=== PATIENT | female | born 1930 | race Caucasian/White ===

== ENCOUNTER 2017-02-27 20:36 | Emergency (ER) | payer MEDICARE, BC ==
[2017-02-27] MEDS ORDERED: FENTANYL 100 MCG/2 ML VIAL ONE (21:05)
--- NOTE | 2017-02-27 22:18 | ER NURSING DOCUMENTATION ---
Nurse's Notes [facility] Name:Zina Camargo Age:86 yrs Sex:Female :1930 Arrival Date:02/27/2017 Time:20:36 Bed6 Private MD:Jazlyn Salmeron Diagnosis:Colles Fracture Presentation: 02/27 20:39 Acuity: YE 3 lc 20:40 Presenting complaint: Patient states: GROUND LEVEL FALL AND INJURED LEFT WRIST. NO LOC lc OR NECK PAIN. DENIES OTHER INJURY. TOOK TYLENOL BEFORE COMING. Transition of care: [facility]. Notified ED Physician of patient's arrival and CC. 20:40 Method Of Arrival: Private Vehicle lc Triage Assessment: 20:45 General: Appears uncomfortable, well groomed, Behavior is appropriate for age, lc cooperative. Pain: Complains of pain in left wrist Pain At worst was 9 out of 10 on a pain scale. Quality of pain is described as throbbing, Pain began 1 hour ago Aggravated by increased activity. Neuro: Level of Consciousness is awake, alert, Oriented to person, place, time, event. Musculoskeletal: Circulation, motion, and sensation intact Capillary refill Range of motion limited in left wrist Swelling present in left wrist. Injury Description: Crush injury. Historical: - Allergies: Codeine; - Home Meds: 1. Lisinopril Oral 2. Aricept Oral 3. Xanax Oral 4. Lexapro Oral 5. atorvastatin oral - PMHx: Hypertension; - PSHx: HUMERUS; - Tetanus: < 10 years. - Ebola Screening: : Patient negative for fever greater than or equal to 101.5 degrees Fahrenheit, and additional compatible Ebola Virus Disease symptoms. Patient denies exposure to infectious person. Patient denies travel to an Ebola-affected area in the 21 days before illness onset. No symptoms or risks identified at this time. . - Immunization history: Flu Vaccine < 1 year. - Social history: Smoking status: Patient states was never smoker of tobacco. Screenin:49 Infectious Disease Risk None. Abuse screen: Denies threats or abuse. Denies injuries lc from another. Nutritional screening: No deficits noted. Assessment: 20:49 See Triage Assessment done by same RN. lc 22:11 Reassessment: Patient appears in no apparent distress at this time. CSM INTACT TO lc FINGERS. Vital Signs: 20:48 BP 167 / 70; Pulse 67; Resp 16; Temp 98.7; Pulse Ox 92% on R/A; Weight 50.8 kg; Height lc 5 ft. 1 in. (154.94 cm); Pain 9/10; 22:14 BP 154 / 88; Pulse 78; Resp 16; Pulse Ox 92% ; Pain 5/10; lc 20:48 Body Mass Index 21.16 (50.80 kg, 154.94 cm) ED Course: 20:37 Patient arrived in ED. em2 20:39 Merissa Anguiano, RN is Primary Nurse. lc 20:39 Triage completed. lc 20:45 Mo Jones MD is Attending Physician. tl1 20:46 Jazlyn Salmeron DO is Private Physician. em2 20:48 Port Xray Completed. ms 20:49 Valuables Remains with patient Patient has correct armband on for positive lc identification. Bed in low position. Call light in reach. Side rails up X 1. Adult w/ patient. Ice pack to injury. Elevated left arm. 20:58 WRIST; [place] [id number] In Process Unspecified. EDMS 21:42 Deondre Escalera MD is Referral Physician. tl1 22:09 Assist Provider Splinting. Sling applied to left arm. lc Administered Medications: 20:55 Drug: fentaNYL [place] 75 mcg; Route: Intranasal; Site: both nares; lc 21:12 Follow up: Response: Pain is decreased Outcome: 21:43 Discharge ordered by . tl1 22:12 Discharged to home via wheelchair, with family. 22:12 Condition: stable 22:12 Discharge Assessment: Patient awake, alert and oriented x 3. No cognitive and/or functional deficits noted. Patient verbalized understanding of disposition instructions. 22:14 Discharge instructions given to patient, family, Instructed on discharge instructions, lc follow up and referral plans. medication usage, [facility] Demonstrated understanding of instructions, medications. 22:17 Patient left the ED. 02/28 10:51 Discharge F/U Call: Unable to reach: no answer lp Signatures: Dispatcher [employer] EDMS Merissa Anguiano, DANTE HOWELL Josette Underwood RN RN Magalis Billingsley ms Mary-reg, Gwendolyn-reg em2 Mo Jones MD MD tl1
--- NOTE | 2017-02-27 22:18 | ER PHYSICIAN DOCUMENTATION ---
Physician Documentation [facility] Name:Zina Camargo Age:86 yrs Sex:Female :1930 Arrival Date:02/27/2017 Time:20:36 Bed6 Private MD:Jazlyn Salmeron ED, Tom Disposition: 02/28 01:12 Chart complete. tl1 Disposition: 02/27/17 21:43 Discharged to Home/Self Care. Impression: Colles Fracture. - Condition is Good. - Discharge Instructions: COLLES FRACTURE, Reduction Required. - Prescriptions for Archer 5- 325 mg Oral Tablet - take 1 tablet by ORAL route every 6 hours As needed; 20 tablet. Zofran 4 mg Oral Tablet - take 1-2 tablet by ORAL route every 4-6 hours As needed; 10 tablet. - Medical Reconciliation form form. - Follow up: Deondre Escalera MD; When: 2 - 3 days; Reason: Recheck today's complaints, Continuance of care. - Problem is new. - Symptoms have improved. HPI: 02/27 20:40 This 86 yrs old Female presents to ER via Private Vehicle with complaints of tl1 Wrist Injury - LEFT. 02/28 00:54 The patient or guardian reports deformity, injury. The complaints affect the left wrist tl1 diffusely. Context: The problem was sustained at home, resulted from a fall, while walking. Onset: The symptom(s)/episode began/occurred just prior to arrival. Compartment Syndrome negative for numbness, tingling. Historical: - Allergies: Codeine; - Home Meds: 1. Lisinopril Oral 2. Aricept Oral 3. Xanax Oral 4. Lexapro Oral 5. atorvastatin oral - PMHx: Hypertension; - PSHx: HUMERUS; - Tetanus: < 10 years. - Ebola Screening: : Patient negative for fever greater than or equal to 101.5 degrees Fahrenheit, and additional compatible Ebola Virus Disease symptoms. Patient denies exposure to infectious person. Patient denies travel to an Ebola-affected area in the 21 days before illness onset. No symptoms or risks identified at this time. . - Immunization history: Flu Vaccine < 1 year. - Social history: Smoking status: Patient states was never smoker of tobacco. ROS: 02/27 20:50 MS/extremity: Positive for deformity, pain, swelling, tenderness, of the left wrist. tl1 All other systems are negative. Exam: 20:50 Hand exam: Exam is positive for deformity, swelling, tenderness, ROM: limited active tl1 range of motion, limited passive range of motion, Circulation is intact in all extremities. sensation intact. 20:50 Constitutional: This is a well developed, well nourished patient who is awake, alert, tl1 and in no acute distress. 20:50 Head/Face: Normocephalic, atraumatic. 20:50 Cardiovascular: Rate: normal. 20:50 Respiratory: Respirations: normal. 20:50 Musculoskeletal/extremity: Extremities: grossly normal except: noted in the left wrist: pain, swelling, tenderness, ROM: limited active range of motion, limited passive range of motion. Vital Signs: 20:48 BP 167 / 70; Pulse 67; Resp 16; Temp 98.7; Pulse Ox 92% on R/A; Weight 50.8 kg; Height lc 5 ft. 1 in. (154.94 cm); Pain 9/10; 22:14 BP 154 / 88; Pulse 78; Resp 16; Pulse Ox 92% ; Pain 5/10; lc 20:48 Body Mass Index 21.16 (50.80 kg, 154.94 cm) lc Procedures: 21:00 Splinting: Splint applied to dorsal aspect of left forearm, left wrist, left hand and tl1 palmar aspect of left forearm using Orthoglass splint, applied by myself. nurse. Examined by me, post splint application: neurovascular intact, Patient tolerated well. MDM: 20:45 Patient medically screened. tl1 20:48 Patient medically screened. tl1 21:00 Data reviewed: vital signs, nurses notes, and as a result, I will discharge patient. tl1 Test interpretation: by ED physician or midlevel provider: plain radiologic studies. Counseling: I had a detailed discussion with the patient and/or guardian regarding: the historical points, exam findings, and any diagnostic results supporting the discharge/admit diagnosis, radiology results, the need for outpatient follow up, to return to the emergency department if symptoms worsen or persist or if there are any questions or concerns that arise at home. Response to treatment: the patient's symptoms have mildly improved after treatment. 21:30 ED course: X-rays showed a minimally displaced slightly comminuted moderately angulated tl1 Colle's fracture with about 20 degrees of dorsal tilt. 02/27 20:58 Order name: WRIST; [place] [id number] EDMS 02/28 11:00 Order name: WRIST; [place] [id number] EDMS Dispensed Medications: 20:55 Drug: fentaNYL [place] 75 mcg; Route: Intranasal; Site: both nares; lc 21:12 Follow up: Response: Pain is decreased lc Signatures: Merissa Anguiano RN RN Mo Carey MD MD tl1
--- NOTE | 2017-02-28 10:08 | RADIOLOGY REPORT ---
Four views of the left wrist demonstrate a comminuted intraarticular fracture of the distal radius. There is dorsal impaction resulting in reversal of the normal volar tilt. Associated ulnar styloid process fracture is noted. Marked peritrapezial degenerative joint disease is noted. No other abnormality is identified. IMPRESSION: Impacted intraarticular left Colles fracture as described. [facility]
== END 2017-02-27 22:17 | disposition home or self-care (01) ==
LOC: ER 20:36
DX: S52.532A Colles' fracture of left radius, initial encounter for closed fracture (principal); W19.XXXA Unspecified fall, initial encounter; Y92.019 Unspecified place in single-family (private) house as the place of occurrence of the external cause; Y93.01 Activity, walking, marching and hiking; I10 Essential (primary) hypertension; Z79.899 Other long term (current) drug therapy
CPT/HCPCS: 29125; 73110; 99282; 99284; J3010

== ENCOUNTER 2017-03-01 12:20 | Observation (INO) | payer MEDICARE, BC ==
[2017-03-01] MEDS ORDERED: ceFAZolin 1 GM in NORMAL SALINE MINI-BAG+ 100 ML IV ONE (12:30)
[2017-03-01] MEDS ORDERED: BUPIVACAINE/EPI 0.25% 1 VIAL VIAL ONE (13:11)
[2017-03-01] MEDS ORDERED: BACITRACIN 50,000 UNITS VIAL IM ONE (13:12)
[2017-03-01] MEDS ORDERED: NORMAL SALINE FLUSH 10 ML ONE ×2 (13:12→13:27)
[2017-03-01] MEDS ORDERED: MIDAZOLAM HCL 2 MG/2 ML VIAL ONE (13:22)
[2017-03-01] MEDS ORDERED: FENTANYL 100 MCG/2 ML VIAL ONE (13:23)
[2017-03-01] MEDS ORDERED: LIDOCAINE HCL/PF 0.5% 50 ML VIAL ONE (13:23)
[2017-03-01] MEDS ORDERED: ceFAZolin 1 GM/10 ML VIAL ONE (13:34)
[2017-03-01] MEDS ORDERED: ONDANSETRON HCL 4 MG/2 ML VIAL ONE (14:27)
[2017-03-01] MEDS ORDERED: BACITRACIN 14 APP/14 GM TUBE TOPICAL ONE (14:28)
[2017-03-01] MEDS ORDERED: SEVOFLURANE 250 ML BTL INHALATION ONE (14:55)
[2017-03-01] MEDS: FENTANYL 100 MCG/2 ML VIAL ONE ×2 (15:38→15:55)
--- NOTE | 2017-03-01 15:57 | OPERATIVE REPORT ---
DATE OF SURGERY: 03/01/17 SURGEON: Ag Gottlieb DO ANESTHESIA: Chang-block with sedation. PREOPERATIVE DIAGNOSIS: Left distal radius fracture. POSTOPERATIVE DIAGNOSIS: Left distal radius fracture. OPERATION PERFORMED: Left distal radius open reduction, internal fixation. ESTIMATED BLOOD LOSS: Minimal. TOTAL TOURNIQUET TIME: 77 minutes with the Chang block. PROCEDURE NOTE: The patient was brought to the operating room suite and after administration of the [place]-block and some sedation, the left upper extremity was prepped and draped in a sterile fashion. An incision was made over the level of the volar aspect of the left wrist longitudinally, following the path of the flexor carpal radialis tendon. dissection was carried down to this structure, avoiding all neurovascular structures. The flexor carpal radialis was retracted radially and the tendon sheath floor was incised revealing fracture hematoma and pronator quadrant muscle which had been torn from its origin and insertion. A minimal amount of periosteal elevation was performed for fracture reduction. Fracture was subsequently reduced, and a left hand Innovations 3-hole plate was inserted and K-wires were utilized to fixate the plate in place while maintaining fracture reduction while orthogonal fluoroscopic images were obtained confirming that the fracture was reduced and the plate was in satisfactory position. The proximal shaft screws were inserted first, followed by the distal locking screws which were both fully threaded and smooth peg locking screws. Fluoroscopic imaging confirmed excellent fracture reduction and hardware positioning. The operative site was copiously irrigated with bacitracin infused with normal saline. The incision was closed in a stepwise fashion utilizing 3-0 Vicryl followed by 3-0 nylon in a modified horizontal mattress suture. The incision was dressed with bacitracin ointment, Xeroform, 4x4s, ABD, cast padding, and a well padded plaster splint wrapped with an Sang bandage. There were fluffs between the fingers and in the palm of the hand. The patient was transferred from the operating room suite to the recovery room in stable condition. ROW[facility]
[2017-03-01] MEDS ORDERED: ACETAMINOPHEN 325 MG TABLET PO PRN (16:37)
[2017-03-01] MEDS ORDERED: ALPRAZolam 0.5 MG TABLET PO PRN (16:37)
[2017-03-01] MEDS ORDERED: ONDANSETRON ODT 4 MG TAB.RAPDIS PO PRN (16:37)
[2017-03-01] MEDS: LACTATED RINGERS 1,000 ML IV SCH ×2 (17:05→22:42)
[2017-03-01] MEDS ORDERED: ATORVASTATIN CALCIUIM 40 MG TABLET PO SCH (21:00)
[2017-03-01] MEDS: ceFAZolin 1 GM in NORMAL SALINE MINI-BAG+ 100 ML IV SCH (21:07)
[2017-03-02] MEDS: ceFAZolin 1 GM in NORMAL SALINE MINI-BAG+ 100 ML IV SCH ×2 (05:27→13:45)
[2017-03-02] MEDS ORDERED: MULTIVITAMINS THERAPEUTIC 1 TABLET PO SCH (09:00)
[2017-03-02] MEDS ORDERED: POLYETHYLENE GLYCOL 3350 17 GM POWD.PACK PO SCH (09:00)
[2017-03-02] MEDS ORDERED: AMLODIPINE BESYLATE 5 MG TABLET PO SCH (09:00)
[2017-03-02] MEDS ORDERED: ESCITALOPRAM OXALATE 10 MG TABLET PO SCH (09:00)
[2017-03-02] MEDS ORDERED: LISINOPRIL 5 MG TABLET PO SCH (09:00)
[2017-03-02] MEDS ORDERED: DONEPEZIL HCL 10 MG TABLET PO SCH (09:00)
[2017-03-02 10:04] VITALS: RESP 20
[2017-03-02 11:21] VITALS: BP 144/74; PULSE 69; TEMP 98.1
[2017-03-02 13:39] VITALS: O2SAT 90
--- NOTE | 2017-03-02 16:25 | DC SUMMARY: Orthopedic Note ---
Discharge Summary: Surg/OB Provider: Date of Admission: 03/01/17 Admitting Provider: GIACOMO HUDSON DO Attending Provider: GIACOMO HUDSON DO Discharging Provider: GIACOMO HUDSON DO Primary Care Provider: Discharge Date: 03/02/17 - Diagnosis (1) Closed fracture distal radius and ulna Status: Acute Qualifiers: Laterality: left Hospital Course: Ms. LOREDO is a 86 year old female who underwent an open reduction internal fixation of a left distal radius fracture on 01 March 2017. She had postoperative hypoxia requiring oxygen so she was admitted for observation. On POD #1 she was doing well and was able to ambulate with a platform walker. Discharge - Patient/Caregiver Discharge Instructions Activity Level: may ambulate, but no lifting wiht left arm. Diet: reg Additional Instructions: Keep your left arm elevated above your heart as often as possible to reduce swelling. Ice may also help in this regard. Take pain medication only as prescribed and as needed. Follow up: GIACOMO HUDSON DO [ACTIVE (Staff Physician)] - 03/13/17 10:00 am Overall discharge status: stable Disposition: HOME, SELF-CARE Orthopedic: Discharge Phy Exam - Latest Vital Signs and I&O Latest Vital Signs/I&O: Vital Signs Temp 36.7 C 03/02/17 11:00 Pulse 69 03/02/17 11:00 Resp 20 03/02/17 11:00 BP 144/74 03/02/17 11:00 Pulse Ox 90 03/02/17 13:37 Intake & Output 03/01/17 03/02/17 03/02/17 17:59 05:59 17:59 Intake Total 1565 1536 Output Total 2225 625 Balance -660 911 Weight 55 kg Intake: IV 1136 Right Hand 1136 Oral 1565 400 Output: Urine 2225 625 Other: Urine Appearance Clear Clear Urine Color Pale Pale Voiding Method Toilet Bedpan Bedpan # Voids 9 - Post-Operative Exam Post-op Day: 1 Dressing Status: dry & intact Distal Pulses: +2 Active Motor: intact Sensation: intact Discharge Summary Data - Medication History Medication History: Home Medications ALPRAZolam [Xanax*] 0.25 mg PO HS PRN 03/01/17 Amlodipine Besylate [Norvasc*] 5 mg PO DAILY 03/01/17 Atorvastatin Calcium [Lipitor*] 20 mg PO HS 03/01/17 Donepezil HCl [Aricept*] 10 mg PO DAILY 03/01/17 Escitalopram Oxalate [Lexapro*] 10 mg PO EVERY MORNING 03/01/17 HYDROcodone/APAP 10/325 MG [[place] 10-325 Tablet*] 0.5 - 1 tab PO QID PRN Lisinopril [Prinivil*] 5 mg PO DAILY 03/01/17 Multivitamins,Therapeutic [Thera Multivitamin*] 1 udtab PO DAILY 03/01/17 Ondansetron Odt [Zofran Odt*] 4 mg PO Q6H PRN 03/01/17 Inpatient Medications 03/01/17 16:37 ALPRAZolam [Xanax] 0.25 mg PO HS PRN Acetaminophen [Tylenol] 325 mg PO Q4H PRN HYDROcodone/APAP 5/325 MG [[place]] 1 tab PO Q3H PRN Lactated Ringers [Lr 1000 ml Bag] 1,000 ml IV CONT Ondansetron Odt [Zofran Odt] 4 mg PO Q6H PRN oxyCODONE HCL IR [Oxy Ir] 5 mg PO Q3H PRN 03/01/17 17:44 HYDROmorphone HCL [dilaUDID] 1 mg IV Q4H PRN 03/01/17 21:00 Atorvastatin Calcium [Lipitor] 20 mg PO HS 03/02/17 09:00 Amlodipine Besylate [Norvasc] 5 mg PO DAILY Donepezil HCl [Aricept] 10 mg PO DAILY Escitalopram Oxalate [Lexapro] 10 mg PO EVERY MORNING Lisinopril [Prinivil] 5 mg PO DAILY Multivitamins,Therapeutic [Thera] 1 tab PO DAILY Polyethylene Glycol 3350 [miraLAX] 17 gm PO DAILY Procedures and tests throughout hospitalization: Pending Orders 03/01/17 12:30 Insert Peripheral IV ONCE 03/01/17 14:45 FLUOROSCOPY, UP TO 1 [id number] [FLUORO] Routine WRIST; [place] [id number] [RAD] Routine 03/01/17 16:37 Admit: Observation Routine Activity: As Tolerated PRN Activity: BRP w/ Assist Only . Activity: Up to Chair TID Apply ice to affected area PRN Incentive Spirometry Q1H Titrate Oxygen TITRATE TO >90% Turn, Cough, and Deep Breathe Q2H Vital Signs ROUTINE VITALS (Q4H) Data Programmer Consult [CM] Routine ALPRAZolam [Xanax] 0.25 mg PO HS PRN Acetaminophen [Tylenol] 325 mg PO Q4H PRN HYDROcodone/APAP 5/325 MG [[place]] 1 tab PO Q3H PRN Lactated Ringers [Lr 1000 ml Bag] 1,000 ml IV CONT Ondansetron Odt [Zofran Odt] 4 mg PO Q6H PRN oxyCODONE HCL IR [Oxy Ir] 5 mg PO Q3H PRN 03/01/17 17:44 HYDROmorphone HCL [dilaUDID] 1 mg IV Q4H PRN 03/01/17 17:45 CODE [Resuscitation Status] Routine 03/01/17 21:00 Atorvastatin Calcium [Lipitor] 20 mg PO HS 03/01/17 Dinner Regular [DIET] 03/02/17 09:00 Amlodipine Besylate [Norvasc] 5 mg PO DAILY Donepezil HCl [Aricept] 10 mg PO DAILY Escitalopram Oxalate [Lexapro] 10 mg PO EVERY MORNING Lisinopril [Prinivil] 5 mg PO DAILY Multivitamins,Therapeutic [Thera] 1 tab PO DAILY Polyethylene Glycol 3350 [miraLAX] 17 gm PO DAILY 03/02/17 13:51 Physical Therapy Eval and Treatment [PT] Routine
--- NOTE | 2017-03-06 19:04 | RADIOLOGY REPORT ---
Three limited views of the left wrist from the C-Arm in the operating room are compared with prior films dated 02/27/2017. There has been interval open reduction and internal fixation of the distal radius fracture, which is secured with a volar plate and multiple screws. No other change is identified. IMPRESSION: Interval open reduction and internal fixation of the left distal radius fracture. [facility]
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
== END 2017-03-02 16:10 | disposition home or self-care (01) ==
LOC: SDS 12:20 → IN 16:22
PROVIDERS: ADMIT Orthopaedic Surgery; ATTEND Orthopaedic Surgery
DX: G89.18 Other acute postprocedural pain (principal); S52.502A Unspecified fracture of the lower end of left radius, initial encounter for closed fracture; W01.0XXA Fall on same level from slipping, tripping and stumbling without subsequent striking against object, initial encounter; M81.0 Age-related osteoporosis without current pathological fracture; N32.81 Overactive bladder; R29.6 Repeated falls; F03.90 Unspecified dementia, unspecified severity, without behavioral disturbance, psychotic disturbance, mood disturbance, and anxiety; I10 Essential (primary) hypertension; E78.5 Hyperlipidemia, unspecified; Z85.3 Personal history of malignant neoplasm of breast; Z79.899 Other long term (current) drug therapy
CPT/HCPCS: 25609; 73110; 76000; 94668; 96366; 96375; 99214; C1713; G0378; G8978; G8979; J0690; J1170; J2001; J2250; J2405; J3010; J7120